=== PATIENT | female | born 1995 | race Caucasian/White ===

== ENCOUNTER 2024-04-22 09:12 | Emergency (ER) | payer OTHER ==
[~2024-04-22] VITALS: Ht 165.1 cm; Wt 95.3 kg
[2024-04-22] MEDS ORDERED: LIDOCAINE 5% (PATCH) 1 EA PATCH TP ONE (10:05)
[2024-04-22] MEDS ORDERED: ONDANSETRON HCL/PF 4 MG/2 ML VIAL ONE (10:05)
[2024-04-22] MEDS ORDERED: KETOROLAC TROMETHAMINE 15 MG/ML VIAL ONE (10:06)
[2024-04-22] MEDS ORDERED: MORPHINE SULFATE INJ 4 MG/ML DISP.SYRIN ONE (10:06)
[2024-04-22] MEDS: KETOROLAC TROMETHAMINE 15 MG/ML VIAL IV ONE (10:27)
[2024-04-22] MEDS: ONDANSETRON HCL/PF 4 MG/2 ML VIAL IV ONE (10:27)
[2024-04-22] MEDS: LIDOCAINE 5% (PATCH) 1 EA PATCH TP STA (10:28)
[2024-04-22] MEDS: MORPHINE SULFATE INJ 2 MG/ML DISP.SYRIN IV ONE (10:28)
[2024-04-22 10:59] VITALS: BP 126/90; TEMP 98.6; O2SAT 95
== END 2024-04-22 10:59 | disposition home or self-care (01) ==
LOC: ER 09:15
DX: R07.89 Other chest pain (principal); M54.50 Low back pain, unspecified; G89.29 Other chronic pain; M54.6 Pain in thoracic spine; Z88.8 Allergy status to other drugs, medicaments and biological substances; V47.5XXA Car driver injured in collision with fixed or stationary object in traffic accident, initial encounter; Y93.89 Activity, other specified; Y92.524 Gas station as the place of occurrence of the external cause; Y99.8 Other external cause status
CPT/HCPCS: 99284; 96374; 96375; J1885; J2270; J2405